=== PATIENT | female | born 1985 | race Caucasian/White ===

== ENCOUNTER 2019-10-01 13:30 | Outpatient (RCR) | payer BC | END 2019-10-22 | disposition home or self-care (01) | LOC: WSST | DX: J30.9 Allergic rhinitis, unspecified (principal); R49.0 Dysphonia ==

== ENCOUNTER 2019-12-19 14:15 | Outpatient (RCR) | payer BC | END 2020-01-28 | disposition home or self-care (01) | LOC: WSST | DX: R49.0 Dysphonia (principal) ==

== ENCOUNTER 2021-04-08 02:21 | Emergency (ER) | payer BC ==
[~2021-04-08] VITALS: Ht 160 cm; Wt 54.5 kg
[2021-04-08 02:55] LABS: TRICYCLIC ANTIDEPRESS URINE NEGATIVE
[2021-04-08 03:10] LABS: BASO # 0.1 (0.0-0.2); BASO % 0.7 % (0.0-2.0); EOS # 0.2 (0.0-0.7); EOS % 2.9 % (0-4.0); GRAN # 4.4 (1.4-6.5); GRAN % 53.2 % (42.2-75.2); HEMATOCRIT 40.6 % (37.0-47.0); HEMOGLOBIN 13.3 g/dl (12.5-16.0); LYMPH # 2.9 (1.2-3.4); LYMPH % 35.3 % (20.0-51.0); MEAN CELL VOLUME 89 fl (80.0-100.0); MEAN CORPUSCULAR HEMOGLOBIN 29 pg (27.0-31.0); MEAN CORPUSCULAR HGB CONC 33 g/dl (33.0-37.0); MEAN PLATELET VOLUME 9.1 fl (7.4-10.4); MONO # 0.7 (0.1-0.6); MONO % 7.8 % (1.7-9.3); PLATELET COUNT 268 K/mm3 (130-400); RED BLOOD COUNT 4.55 M/mm3 (4.10-5.30); REDCELL DISTRIBUTION WIDTH-CV 12.1 % (11.5-14.5)
[2021-04-08] MEDS ORDERED: AMITRIPTYLINE H50 M1 PO (03:10)
[2021-04-08] MEDS ORDERED: ADDERALL20 MG PO (03:10)
[2021-04-08] MEDS ORDERED: NUVIGIL150 MG PO (03:12)
[2021-04-08] MEDS ORDERED: NORETHINDRONE AC5 MG PO (03:13)
[2021-04-08 03:27] LABS: ALANINE AMINOTRANSFERASE 26 U/L (4-34); ALKALINE PHOSPHATASE 39 U/L (50-136); ANION GAP 7 mmol/L (7-16); AST,SGOT 30 U/L (15-37); BILIRUBIN,TOTAL 0.2 mg/dL (0.0-1.0); BLOOD UREA NITROGEN 16 mg/dL (7-17); CALCIUM 9.1 mg/dL (8.4-10.2); CARBON DIOXIDE 26 mmol/L (22-30); CHLORIDE 104 mmol/L (98-107); CREATININE, serum 0.69 (0.52-1.25); GLUCOSE 84 mg/dL (74-106); POTASSIUM 3.6 mmol/L (3.4-5.0); SODIUM 137 mmol/L (137-145); TOTAL PROTEIN 6.9 gm/dL (6.4-8.2)
[2021-04-08 03:28] LABS: ALCOHOL(ethanol),MEDICAL < 10 mg/dL
[2021-04-08 09:45] VITALS: BP 121/68; PULSE 71; TEMP 97.7
== END 2021-04-08 11:05 ==
LOC: COL.ER 02:21
PROVIDERS: Personal Emergency Response Attendant
DX: F32.9 Major depressive disorder, single episode, unspecified (principal); R45.851 Suicidal ideations; G47.419 Narcolepsy without cataplexy; Z20.822 Contact with and (suspected) exposure to COVID-19